=== PATIENT | female | born 1975 | race Two or more races ===

== ENCOUNTER 2017-07-22 16:13 | Outpatient (CLI) | payer OTHER ==
[~2017-07-22 16:13] MED LIST: ALLEGRA ALLERG180 MG PO; ANTICONCEPTIVOS; ORPH100T PO; VITAMINAS; VOLTAREM 50 MG PO
== END 2017-07-22 16:35 | disposition home or self-care (01) ==
LOC: RAD 16:13
DX: M25.70 Osteophyte, unspecified joint (principal); J01.90 Acute sinusitis, unspecified; H70.92 Unspecified mastoiditis, left ear

== ENCOUNTER → 2018-10-17 | Emergency (ER) | payer OTHER ==
[~2018-10-17] VITALS: Ht 157.5 cm; Wt 49.4 kg
== END | disposition left against medical advice (07) ==
LOC: ER 03:44
DX: Z53.20 Procedure and treatment not carried out because of patient's decision for unspecified reasons (principal)

== ENCOUNTER 2020-05-18 06:21 | Emergency (ER) | payer OTHER ==
[~2020-05-18] VITALS: Ht 160 cm; Wt 54.4 kg
[2020-05-18] MEDS ORDERED: MOTION RELIEF25 MG PO (09:28)
[2020-05-18] MEDS ORDERED: METOCLOPRAMIDE10 MG PO (09:28)
== END 2020-05-18 09:44 | disposition home or self-care (01) ==
LOC: ER 06:21
DX: R42 Dizziness and giddiness (principal)

== ENCOUNTER 2021-12-04 04:53 | Emergency (ER) | payer OTHER ==
[~2021-12-04] VITALS: Ht 157.5 cm; Wt 52.6 kg
[~2021-12-04 04:53] MED LIST changes: +METOCLOPRAMIDE10 MG PO; +MOTION RELIEF25 MG PO
== END 2021-12-04 13:34 | disposition home or self-care (01) ==
LOC: ER 04:53
DX: H81.10 Benign paroxysmal vertigo, unspecified ear (principal); R42 Dizziness and giddiness